=== PATIENT | female | born 1970 | race Caucasian/White ===

== ENCOUNTER 2021-02-22 04:31 | Observation (INO) ==
[2021-02-22 05:37] LABS: ABS Eosinophils 0.1 10^3/ul (0-0.6); ABS Lymphocytes 3.3 10^3/ul (1.0-4.8); ABS Monocytes 0.7 10^3/ul (0-0.8); ABS Neutrophils 6.5 10^3/ul (1.5-7.7); Eosinophil % 1.4 %; Hematocrit 41 % (35-47); Hemoglobin 13.1 g/dL (12.0-16.0); Lymphocyte % 30.9 %; Mean Corpuscular HGB Conc 32 g/dL (31-36); Mean Corpuscular Hemoglobin 29 pg (27-31); Mean Corpuscular Volume 90 fL (80-97); Mean Platelet Volume 8.7 fL (7.4-10.4); Nucleated Red Blood Cells % 0.1; Platelet Count 323 10^3/uL (150-450); Red Cell Distribution Width 18 % (10-15); White Blood Count 10.6 10^3/uL (3.5-10.8)
[2021-02-22 05:42] LABS: Urine Appearance Cloudy; Urine Bilirubin Negative (Negative); Urine Blood Negative (Negative); Urine Color Yellow; Urine Glucose Negative (Negative); Urine Ketones Negative (Negative); Urine Nitrite Negative (Negative); Urine Protein 1+(30 mg/dL) (Negative); Urine Specific Gravity 1.029 (1.002-1.030); Urine Urobilinogen Negative (Negative)
[2021-02-22 05:43] LABS: Urine Bacteria Absent (Absent); Urine Red Blood Cell Trace(0-2/hpf) (Absent); Urine Squamous Epithelial Cell Present (Absent); Urine White Blood Cell Trace(0-5/hpf) (Absent)
[2021-02-22] MEDS: NS 0.9% 1000 ml BAG 1,000 ML IV SCH ×2 (05:44→20:59)
[2021-02-22 06:05] LABS: Albumin 4.5 g/dL (3.2-5.2); Calcium 9.1 mg/dL (8.6-10.3); HCG Pregnancy 2.22 mIU/mL; Total Bilirubin 0.4 mg/dL (0.2-1.0)
[2021-02-22 06:12] LABS: Albumin/Globulin Ratio 1.6 (1-3); C Reactive Protein 3.06 mg/L (<8.01); Globulin 2.9 g/dL (2-4); Total Protein 7.4 g/dL (6.4-8.9); eGFR CKD-EPI 91.1 (>60)
[2021-02-22 06:19] LABS: Potassium 3.5 mmol/L (3.5-5.0)
[2021-02-22] MEDS ORDERED: Iohexol 300 (CONTRAST) 10 ML SDV IV ONE (06:26)
[2021-02-22] MEDS ORDERED: Ondansetron 4 mg VIAL 2 MG/ML 2 ml VIAL IV ONE (09:14)
[2021-02-22] MEDS ORDERED: Lactated Ringers 1000 ml BAG 1,000 ML IV ONE ×2 (09:39→14:42)
[2021-02-22] MEDS ORDERED: Morphine 4 MG/ML VIAL (1 ml) IV ONE (14:43)
[2021-02-22] MEDS ORDERED: Ondansetron 4 mg VIAL 2 MG/ML 2 ml VIAL IV PRN ×2 (16:25→19:43)
[2021-02-22] MEDS ORDERED: HYDROmorphone 0.5 MG/0.5 ML SYRINGE IV SLOW PU PRN (16:25)
[2021-02-22] MEDS ORDERED: MAGNESIUM CARBONATE PO PRN (16:26)
[2021-02-22] MEDS ORDERED: ALUMINUM HYDROXIDE PO PRN (16:26)
[2021-02-22] MEDS ORDERED: D5W NS 0.9% 20Meq KCL 1000 ml 1,000 ML IV SCH (17:00)
[2021-02-22] MEDS ORDERED: Piperacillin/Tazobac 3.375 GM BAG ONE (17:05)
[2021-02-22] MEDS ORDERED: Acetaminophen IV 1 GM/100ML VI 100 ML IV PRN (17:07)
[2021-02-22] MEDS ORDERED: ZOSYN 3.375 GM x ONE DOSE over 30 miuntes IV (17:15)
[2021-02-22] MEDS ORDERED: Lidocaine 2% PF 5 ML VIAL ONE (17:21)
[2021-02-22] MEDS ORDERED: Rocuronium 50 mg VIAL 10 mg/ml 5 ml VIAL (50 mg) ONE ×2 (17:21→18:41)
[2021-02-22] MEDS ORDERED: Propofol 10 MG/ML 20 ML BTL ONE (17:21)
[2021-02-22] MEDS ORDERED: fentaNYL 250 mcg/5 ml 50 MCG/ML 5 ml VIAL (250 MCG) ONE (17:21)
[2021-02-22] MEDS ORDERED: Midazolam 2 mg/2 ml VIAL 1 mg/ml 2 ml VIAL (2 mg) ONE (17:23)
[2021-02-22] MEDS ORDERED: Acetaminophen IV 1 GM/100ML VI 100 ML ONE (17:25)
[2021-02-22] MEDS ORDERED: Bupivacaine 0.25% SDV 30 ML ONE (17:37)
[2021-02-22] MEDS ORDERED: HYDROmorphone 0.5 MG/0.5 ML SYRINGE ONE (18:14)
[2021-02-22] MEDS ORDERED: Dexamethasone IV 4 MG/ML VIAL 1 ml VIAL ONE (18:14)
[2021-02-22] MEDS ORDERED: Ondansetron 4 mg VIAL 2 MG/ML 2 ml VIAL ONE ×2 (18:14→20:00)
[2021-02-22] MEDS ORDERED: EPHEDrine (Pressors) 50 MG/ML VIAL ONE (18:18)
[2021-02-22] MEDS ORDERED: Phenylephrine 40 mcg/mL 10mL (400mcg) SYRINGE ONE (18:26)
[2021-02-22] MEDS ORDERED: fentaNYL 100 mcg/2 ml 50 MCG/ML VIAL IV PRN (19:43)
[2021-02-22] MEDS ORDERED: Naloxone 0.4 mg VIAL 0.4 mg/ml 1 ml VIAL IV PRN (19:43)
[2021-02-22] MEDS ORDERED: DiMENhydriNATE IV 50 mg/ml 1 ml VIAL IV PUSH PRN (19:43)
[2021-02-22] MEDS ORDERED: diPHENhydraMINE IV 50 MG/ML 1 ml VIAL (BENADRYL) IV PRN (19:43)
[2021-02-22] MEDS ORDERED: diPHENhydraMINE IV 50 MG/ML 1 ml VIAL (BENADRYL) ONE (19:45)
[2021-02-22] MEDS ORDERED: DiMENhydriNATE IV 50 mg/ml 1 ml VIAL ONE (19:45)
[2021-02-22] MEDS: Piperacillin/Tazobac ADVAN 3.375 GM in NS 0.9% 100 ml BAG 100 ML IV SCH (22:06)
[2021-02-22] MEDS ORDERED: oxyCODONE/Acetamin 5/325 mg TAB PO PRN (23:48)
[2021-02-23] MEDS: Piperacillin/Tazobac ADVAN 3.375 GM in NS 0.9% 100 ml BAG 100 ML IV SCH (05:34)
[2021-02-23 08:25] VITALS: BP 130/74
== END 2021-02-23 12:06 | disposition home or self-care (01) ==
LOC: ED 04:31 → EDHOLD 04:31 → OR 17:29 → SSU 19:43 → INTOOBSV 19:43
PROVIDERS: ADMIT Surgery; ATTEND Surgery